=== PATIENT | male | born 1995 | race Caucasian/White ===

== ENCOUNTER → 2017-03-08 | Outpatient (CLI) | payer BC ==
[2014-11-09 23:45] VITALS: BP 122/68
[~2017-03-08] MED LIST: CYCLOBENZAPRINE10 MG PO; NORCO 325 MG-51 TAB PO
== END ==
LOC: LAB 16:58
DX: J02.0 Streptococcal pharyngitis (principal)

== ENCOUNTER → 2020-12-17 | Outpatient (CLI) | payer BC ==
[2014-11-09 23:45] VITALS: BP 122/68
== END ==
LOC: RAD 15:32
DX: M25.511 Pain in right shoulder (principal)

== ENCOUNTER → 2020-12-18 | Outpatient (CLI) | payer BC ==
[2014-11-09 23:45] VITALS: BP 122/68
[2020-12-18 09:08] LABS: ALBUMIN 4.3 g/dL (3.5-5.0); POTASSIUM 4.4 mmol/L (3.5-5.1)
[2020-12-18 09:09] LABS: CALCIUM 9.1 mg/dL (8.3-10.5)
[2020-12-18 09:10] LABS: TOTAL PROTEIN 7.2 g/dL (6.4-8.3)
[2020-12-18 09:12] LABS: TOTAL BILIRUBIN 0.3 mg/dL (0.2-1.2)
[2020-12-18 09:17] LABS: BASO # 0.1 (0.02-0.10); EOS # 0.4 (0.04-0.40); HEMATOCRIT 46.5 % (42.0-52.0); HEMOGLOBIN 15.3 g/dL (13.5-18.0); LYMPH# 1.7 (1.50-4.00); MEAN CELL VOLUME 89 fl (78-100); MEAN CORPUSCULAR HEMOGLOBIN 29 pg (27-31); MEAN CORPUSCULAR HGB CONC 33 g/dL (33-37); MEAN PLATELET VOLUME 10.2 fl (7.4-10.4); MONO # 0.8 (0.20-0.80); NEU # 3.6 (1.40-6.50); PLATELET COUNT 199 K/mm3 (130-400); RED BLOOD COUNT 5.22 M/mm3 (4.20-5.60); RED CELL DISTRIBUTION WIDTH 13.5 % (11.5-14.5); WHITE BLOOD COUNT 6.6 K/mm3 (4.8-10.8)
[2020-12-18 09:26] LABS: EOS % 6.3 % (0.0-4.0)
== END ==
LOC: LAB 08:43
PROVIDERS: Nurse Practitioner
DX: Z00.00 Encounter for general adult medical examination without abnormal findings (principal)

== ENCOUNTER 2021-04-25 09:47 | Outpatient (RCR) | payer BC ==
[2014-11-09 23:45] VITALS: BP 122/68
== END 2021-07-24 | disposition still patient (30) ==
LOC: PT
DX: Z79.899 Other long term (current) drug therapy (principal)